=== PATIENT | male | born 1980 | race Caucasian/White ===

== ENCOUNTER 2020-12-28 09:10 | Outpatient (CLI) | payer OTHER, SELFPAY ==
--- NOTE | 2021-01-11 14:54 | WPDHOMESLEEP ---
Sleep Study - Home Unattended Date of Study: 12/28/20 Ordering Provider: ALBANIA Foss Interpreting Provider: Flora Avina MD Home Sleep Study Type: Apnea Link Air Height: 1.78 m Weight: 136.078 kg Body Mass Index: 43.0 Neck Circumference (inches): 21.25 [place]: 4 Reason for Sleep Study Loud snoring, prior sleep study that he never follow up on treatment SNAP home sleep test 07/01/2016; infrequent snoring, Maximum apnea density index was 12.31 for greater than 10 minutes; AHI 19.1 Sleep History Diaz Okeefe is a 60-year-old male who snores loudly. He had a portable sleep test July 01, 2016 with moderate obstructive sleep apnea with desaturation to 79%. He still has been snoring loudly for the last 5-6 years. He has excessive daytime sleepiness and is difficult for him to wake up in the morning. He constantly snores loudly enough that others complain about it. He occasionally awakens at night with heartburn, belching or coughing. He rarely awakens from sleep feeling short of breath. He occasionally has difficulty sleeping with a cold. He does not wake up gasping for breath during the night. He occasionally has breathing problems at night observed by others. He rarely sweats excessively at night. He does not notice his heart pounding or beating irregularly at night. He rarely falls asleep during the day. He does not fall asleep involuntarily or while driving. He does not have loss of muscle tone was strong emotion. 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 He does not feel paralyzed on waking or falling asleep. He does not have vivid dreamlike scenes upon awakening or falling asleep. He is not afraid to go to sleep. He occasionally has nightmares, he occasionally remembers his dreams and he occasionally has racing thoughts. He does not feel sad or depressed. Rarely does he feel anxious. He does not have muscular tension. He rarely notices parts of his body jerking. He does not kick at night. He does not have crawling and aching feelings in his legs. He rarely has any kind of leg pain at night. He does not have morning jaw pain. He rarely grinds his teeth during sleep. He is not bothered by pain during the day, is not awakened by pain at night, does not wake up feeling stiff in the morning with sore achy muscles or pain in the neck and spine. Normal bedtime is 12:30 p.m. taking 10-20 minutes to fall asleep typically waking 2-3 times at night to urinate. He is able to fall asleep again within a few minutes. He wakes the morning at 6:50 a.m.. On the weekends he goes to bed at midnight and wakes at 9:00 a.m.. He does not work swing shift or split shifts however he does sometimes after work longer shifts the normal to complete his work. he takes naps in the afternoon or evening. A short nap may be refreshing. Habits: Smoked tobacco 8 years ago. No caffeine. Alcohol 8-12 drinks on Thursday /Thursday. No recreational drugs. [facility] Past Medical History Medical History Obstructive sleep apnea Social History Social History (Updated 01/11/21 @ 15:18 by Flora Avina MD) Alcohol intake: current Drinks per week: 10 Alcohol use details: 8-12 drinks on Thu/Thu weekends Substance use: never Sleep Procedure This test was performed using 4 channel monitoring including respiratory effort channel, snoring channel, heart rate channel, and oxygen saturation channel. This study was scored using [facility] guidelines. Sleep Architecture Not applicable for home sleep test. Respiratory Analysis The recording time is 6 hours 47 minutes. Evaluation time is 6 hours 31 minutes. The apnea-hypopnea index is 64. He had 239 apneas, and 177, 74%, were obstructive. He had 60 central apneas, 25% of the total, and 2 mixed apneas, 1% of the total. He had 175 hypopneas. There is no evidence of Akhil-George
[2021-01-11 14:59] VITALS: BMI 43.0
== END 2020-12-28 09:11 | disposition home or self-care (01) ==
LOC: ANHCSM 09:11
PROVIDERS: Family Provider Family Medicine; PCP Family Medicine; Visit Provider Physician Assistant
DX: G47.33 Obstructive sleep apnea (adult) (pediatric) (principal)
CPT/HCPCS: 95806

== ENCOUNTER → 2021-01-25 00:22 | Outpatient (CLI) | payer OTHER, SELFPAY ==
[2021-01-25 17:44] LABS: SARS-CoV-2 RNA PCR Negative
== END ==
PROVIDERS: PCP Family Medicine; Visit Provider Internal Medicine Critical Care Medicine
DX: R68.89 Other general symptoms and signs (principal); Z20.822 Contact with and (suspected) exposure to COVID-19
CPT/HCPCS: C9803; U0003; U0005

== ENCOUNTER 2021-01-28 09:23 | Outpatient (CLI) | payer OTHER, SELFPAY ==
--- NOTE | 2021-02-18 09:00 | WPDSLEEPSTUD ---
Sleep Study Date of Study: 01/28/21 Ordering Provider: ALBANIA Foss Interpreting Physician: Flora Avina MD Sleep Study Type: CPAP Titration Height: 1.78 m Weight: 136.078 kg Body Mass Index: 43.0 Neck Circumference (inches): 19.75 [place]: 4 Reason for Sleep Study Home sleep test 12/28/2020 with severe obstructive sleep apnea, AHI 64, presents for CPAP titration Sleep History Diaz Okeefe is a 40-year-old man who had a positive home sleep test on December 28, 2020 with AHI 64, 61% desaturation, 94 minutes below 88% the . He presents now for a CPAP titration in the sleep lab. He still has been snoring loudly for the last 5-6 years. He has excessive daytime sleepiness and is difficult for him to wake up in the morning. He constantly snores loudly enough that others complain about it. He occasionally awakens at night with heartburn, belching or coughing. He rarely awakens from sleep feeling short of breath. He occasionally has difficulty sleeping with a cold. He does not wake up gasping for breath during the night. He occasionally has breathing problems at night observed by others. He rarely sweats excessively at night. He does not notice his heart pounding or beating irregularly at night. He rarely falls asleep during the day. He does not fall asleep involuntarily or while driving. He does not have loss of muscle tone was strong emotion. 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 He does not feel paralyzed on waking or falling asleep. He does not have vivid dreamlike scenes upon awakening or falling asleep. He is not afraid to go to sleep. He occasionally has nightmares, he occasionally remembers his dreams and he occasionally has racing thoughts. He does not feel sad or depressed. Rarely does he feel anxious. He does not have muscular tension. He rarely notices parts of his body jerking. He does not kick at night. He does not have crawling and aching feelings in his legs. He rarely has any kind of leg pain at night. He does not have morning jaw pain. He rarely grinds his teeth during sleep. He is not bothered by pain during the day, is not awakened by pain at night, does not wake up feeling stiff in the morning with sore achy muscles or pain in the neck and spine. Normal bedtime is 12:30 p.m. taking 10-20 minutes to fall asleep typically waking 2-3 times at night to urinate. He is able to fall asleep again within a few minutes. He wakes the morning at 6:50 a.m.. On the weekends he goes to bed at midnight and wakes at 9:00 a.m.. He does not work swing shift or split shifts however he does sometimes after work longer shifts the normal to complete his work. he takes naps in the afternoon or evening. A short nap may be refreshing. Habits: Smoked tobacco 8 years ago. No caffeine. Alcohol 8-12 drinks on Thursday /Thursday. No recreational drugs. [facility] Past Medical History Medical History Obstructive sleep apnea (~12/2020) Social History Social History Alcohol intake: current Drinks per week: 10 Substance use: never Sleep Procedure This test was performed using the [place] multiple channel system including EOG, EEG, submental EMG, EKG, nasal and oral airflow using thermistors and nasal pressure sensors, chest and abdominal belts for body position data, and pulse oximetry. Video monitoring was also performed. The study was scored using CMS guidelines. The patient was started on CPAP using a large Airfit F 20 full face mask and a heated humidifier. Initial pressure was 5 cm and this was gradually increased to a maximum pressure of 17 cm. The optimal pressure is 14 cm. At this pressure the patient spent 2 hours 46 minutes in bed, 17 minutes in REM, 1 hour 47 minutes in non REM, AHI was 4.3, lowest saturation 90% and sleep efficiency
[2021-02-18 09:03] VITALS: BMI 43.0
== END 2021-01-28 09:24 | disposition home or self-care (01) ==
LOC: ANHCSM 09:24
PROVIDERS: PCP Family Medicine; Visit Provider Physician Assistant
DX: G47.33 Obstructive sleep apnea (adult) (pediatric) (principal)
CPT/HCPCS: 95811